=== PATIENT | male | born 1985 | race Caucasian/White ===

== ENCOUNTER 2016-10-15 13:28 | Emergency (ER) | payer OTHER ==
[2016-10-15 13:28] VITALS: BMI 29.2
[2016-10-15 13:39] VITALS: RESP 16; TEMP 98
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
[2016-10-15] MEDS ORDERED: Lidocaine 5% Patch TD STA (15:08)
[2016-10-15] MEDS ORDERED: Lidocaine 5% Patch TD ONE (15:28)
--- NOTE | 2016-10-15 16:16 | RAD ---
PROCEDURE: Radiographs of the Lumbar Spine. HISTORY: lower back pain, midline tender COMPARISON: No prior. FINDINGS: BONES: Normal alignment. No listhesis. No fracture. DISC SPACES: Unremarkable. OTHER FINDINGS: None. IMPRESSION: Unremarkable radiographs of the lumbar spine. Concordant results with the preliminary interpretation rendered by the emergency department physician procedure.
[2016-10-15 16:27] VITALS: BP 143/76; PULSE 84
[2016-10-17 12:41] VITALS: O2SAT 99
== END 2016-10-15 16:26 | disposition home or self-care (01) ==
LOC: C.ER 13:28
DX: S33.5XXA Sprain of ligaments of lumbar spine, initial encounter (principal); W18.39XA Other fall on same level, initial encounter; Y93.67 Activity, basketball; Y92.9 Unspecified place or not applicable
CPT/HCPCS: 72100; 96372; 99283; J1885

== ENCOUNTER 2018-08-11 14:28 | Emergency (ER) | payer OTHER ==
[2018-08-11 14:28] VITALS: BMI 29.2
[2018-08-11 14:38] VITALS: BP 120/77; PULSE 58; RESP 16; TEMP 98.6; O2SAT 100
[2018-08-11] MEDS ORDERED: Lidocaine 5% Patch TD STA (15:12)
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
[2018-08-11] MEDS ORDERED: Bacitracin 500 Units/gm Oint Foilpak UD ONE (15:56)
[2018-08-11] MEDS ORDERED: Lidocaine 5% Patch TD ONE (16:02)
[2018-08-11] MEDS ORDERED: Bacitracin 500 Units/gm Oint Foilpak UD TOP ONE (16:03)
== END 2018-08-11 16:12 | disposition home or self-care (01) ==
LOC: C.ER 14:28
DX: H92.21 Otorrhagia, right ear (principal); M54.5 Low back pain; Z48.00 Encounter for change or removal of nonsurgical wound dressing

== ENCOUNTER 2018-08-26 08:41 | Emergency (ER) | payer OTHER | END 2018-08-26 10:24 | disposition home or self-care (01) | LOC: C.ER 08:41 ==